=== PATIENT | male | born 1990 | race African-American/Black ===

== ENCOUNTER 2019-10-27 21:31 | Emergency (ER) | payer OTHER ==
[2019-10-27] MEDS ORDERED: Sodium Chloride 0.9% 1,000 ML IV ONE (21:40)
[2019-10-27] MEDS ORDERED: Sodium Chloride 0.9% 10 ML Syringe FLUSH PRN (21:40)
[2019-10-27] MEDS ORDERED: Ondansetron 4 MG/2 ML SDV IVPUSH ONE (21:40)
--- NOTE | 2019-10-27 21:46 | EDM.PDOC ---
ED HPI GENERAL MEDICAL PROBLEM - General Chief Complaint: General Stated Complaint: VOMITING AND CHEST PAIN Time Seen by Provider: 10/27/19 21:31 Source of Information: Reports: Patient History Limitations: Reports: No Limitations - History of Present Illness INITIAL COMMENTS - FREE TEXT/NARRATIVE: Patient comes into the emergency department with nausea, vomiting, weakness and right-sided chest discomfort. Patient states the right-sided chest discomfort approximately 2 weeks ago and has been consistent has not changed since it first began. Patient states the pain on the right side of the chest is reproducible with palpation and arm movement. Patient endorses recently moving large amount of furniture and states the discomfort started around that time. Patient states that the nausea, vomiting, weakness started this evening after he arrived at work. He states there was a sudden onset of feeling fatigued and he began to vomit. He states he vomited about 3 or 4 times. She states since then he has not been feeling very well and is diaphoretic. He feels nauseated currently. Patient denies any recent COVID-19 (SOB, headache, sore throat, runny nose, loss of taste) symptoms or recent exposure. Dates he is been relatively healthy otherwise. He denies any active chest pain, shortness of breath, dizziness, lightheadedness, peripheral edema, or genitourinary concerns. Denies any interventions that make the symptoms more intense or lessen. Patient also denies taking any medications or [id number] remedies prior to arrival to the emergency department. Onset: Sudden Location: Reports: Generalized Quality: Reports: Ache Severity: Mild Improves with: Reports: None Worsens with: Reports: None Context: Reports: Activity Associated Symptoms: Reports: Fever/Chills, Loss of Appetite, Malaise, Nausea/Vomiting - Related Data Allergies Allergy/AdvReac Type Severity Reaction Status Date / Time No Known Allergies Allergy Verified 10/27/19 23:07 Home Meds: Home Meds . [No Known Home Meds] 10/27/19 [History] ED ROS GENERAL - Review of Systems Review Of Systems: Comprehensive ROS is negative, except as noted in HPI. Constitutional: Reports: Chills, Malaise, Weakness, Fatigue HEENT: Reports: No Symptoms Respiratory: Reports: Pleuritic Chest Pain Cardiovascular: Reports: No Symptoms Endocrine: Reports: No Symptoms GI/Abdominal: Reports: Nausea, Vomiting : Reports: No Symptoms Musculoskeletal: Reports: No Symptoms Skin: Reports: No Symptoms Neurological: Reports: No Symptoms Psychiatric: Reports: No Symptoms Hematologic/Lymphatic: Reports: No Symptoms Immunologic: Reports: No Symptoms ED EXAM, GENERAL - Physical Exam Exam: See Below Exam Limited By: No Limitations General Appearance: Alert, WD/WN, No Apparent Distress Eye Exam: Bilateral Eye: EOMI, PERRL Head: Atraumatic, Normocephalic Neck: Normal Inspection, Supple, Non-Tender, Full Range of Motion Respiratory/Chest: No Respiratory Distress, Lungs Clear, Normal Breath Sounds, No Accessory Muscle Use, Chest Non-Tender Cardiovascular: Normal Peripheral Pulses, No Edema, No Gallop, Tachycardia Peripheral Pulses: 4+: Radial (L), Radial (R) Extremities: Normal Inspection, Normal Range of Motion, Non-Tender, No Pedal Edema, Normal Capillary Refill Neurological: Alert, Oriented, CN II-XII Intact, Normal Gait Psychiatric: Normal Affect, Normal Mood Skin Exam: Warm, Dry, Intact, Normal Color Course - Orders/Labs/Meds Orders: Active Orders 24 hr Category Date Time Status EKG Documentation Completion [RC] STAT Care 10/27/19 21:40 Ordered Chest 1V Frontal [CR] Stat Exams 10/27/19 21:40 Ordered Sodium Chloride 0.9% [Saline Flush] Med 10/27/19 21:40 Ordered 10 ml FLUSH ASDIRECTED PRN Peripheral IV Insertion Adult [OM.PC] Stat Oth 10/27/19 21:39 Ordered Medication Orders Sodium Chloride (Saline Flush) 10 ml FLUSH ASDIRECTED PRN PRN Reason: Keep Vein Open Labs: Laboratory Tests 10/27/19 10/27/19 Range/Units 22:19 22:19 WBC 5.5 (4.0-10.0) x10^3/uL RBC 5.57 (4.5-6.0) x10^6/uL Hgb 12.8 L (14.0-18.0) g/dL Hct 38.6 L (40.0-52.0) % MCV 69.3 L (78.0-93.0) fL MCH 23.0 L (26.0-32.0) pg MCHC 33.2 (32.0-36.0) g/dL RDW Coeff of Joaquin 15.7 H (10.0-15.0) % Plt Count 201 (130-400) x10^3/uL Neut % (Auto) 51.4 (50.0-80.0) % Lymph % (Auto) 37.6 (25.0-50.0) % Cherry % (Auto) 8.4 (2.0-11.0) % Eos % (Auto) 2.4 (0.0-4.0) % Baso % (Auto) 0.2 (0.2-1.2) % Sodium 138 (136-145) mmol/L Potassium 4.3 (3.5-5.1) mmol/L Chloride 103 (98-107) mmol/L Carbon Dioxide 26 (21-32) mmol/L Anion Gap 13.3 (10-20) mmol/L BUN 11 (7-18) mg/dL Creatinine 1.4 H (0.70-1.30) mg/dL Est Cr Clr Drug Dosing TNP Estimated GFR (MDRD) > 60 Glucose 117 H (74-106) mg/dL Calcium 9.1 (8.5-10.1) mg/dL Corrected Calcium 9.18 (8.5-10.1) mg/dL Total Bilirubin 0.4 (0.2-1.0) mg/dL AST 36 (15-37) U/L ALT 36 (16-63) U/L Alkaline Phosphatase 78 (46-116) U/L Troponin I < 0.017 (<=0.056) ng/mL Total Protein 8.2 (6.4-8.2) g/dL Albumin 3.9 (3.4-5.0) g/dL Globulin 4.3 Albumin/Globulin Ratio 0.91 Meds: Medications Generic Name Dose Route Start Last Admin Trade Name Freq PRN Reason Stop Dose Admin Sodium Chloride 10 ml 10/27/19 21:40 Saline Flush FLUSH ASDIRECTED PRN Keep Vein Open Discontinued Medications Generic Name Dose Route Start Last Admin Trade Name Freq PRN Reason Stop Dose Admin Sodium Chloride 1,000 mls @ 1,000 mls/hr 10/27/19 21:40 10/27/19 22:25 Normal Saline IV 10/27/19 22:39 1,000 mls/hr ONETIME ONE Administration Ondansetron HCl 4 mg 10/27/19 21:40 10/27/19 22:25 Zofran IVPUSH 10/27/19 21:41 4 mg ONETIME ONE Administration - Re-Assessments/Exams Free Text/Narrative Re-Assessment/Exam: 10/27/19 23:16 pt states he is feeling better but is still tired and run down feeling. He is alert, oriented, nausea gone, and resting without any pain or discomfort. Still has palpable discomfort on the right upper/lateral chest only with palpation. Departure - Departure Time of Disposition: 23:20 Disposition: Home, Self-Care 01 Condition: Good Clinical Impression: Viral gastritis - Discharge Information *PRESCRIPTION DRUG MONITORING PROGRAM REVIEWED*: Not Applicable *COPY OF PRESCRIPTION DRUG MONITORING REPORT IN PATIENT MELISSA: Not Applicable Instructions: Viral Gastroenteritis, Adult, [id number] Forms: ED Department Discharge, ED Return to Work/School Form Additional Instructions: 1. rest 2. increase your water intake 3. Continue all at home medications 4. Activity and diet as tolerated 5. Can take over the counter Tylenol for any pain or discomfort 6. Follow up with PCP if symptoms continue, return, or progress 7. Call with any questions or concerns - My Orders Last 24 Hours: My Active Orders 10/27/19 21:39 Peripheral IV Insertion Adult [OM.PC] Stat 10/27/19 21:40 EKG Documentation Completion [RC] STAT Chest 1V Frontal [CR] Stat Sodium Chloride 0.9% [Saline Flush] 10 ml FLUSH ASDIRECTED PRN - Assessment/Plan Last 24 Hours: My Active Orders 10/27/19 21:39 Peripheral IV Insertion Adult [OM.PC] Stat 10/27/19 21:40 EKG Documentation Completion [RC] STAT Chest 1V Frontal [CR] Stat Sodium Chloride 0.9% [Saline Flush] 10 ml FLUSH ASDIRECTED PRN Assessment:: 1. Nausea/vomiting 2. fatigue 3 Viral Gastritis Plan: 1. Labs completed in the ER. Results reviewed with the patient 2. chest xray scan completed in the ER. Results reviewed with the patient 3. IV initiated in the emergency department 4. IV fluids provided 5. EKG completed in ER. 6. Zofran given in the ER to help with nausea 7. Patient and nursing staff was updated regarding the plan of care 8. Patient and family are agreeable to the above plan of care 9. All questions and concerns were addressed with the patient and family prior to discharge
[2019-10-27 22:46] LABS: CHLORIDE,CL 103 mmol/L (98-107); SODIUM,NA 138 mmol/L (136-145)
[2019-10-27 22:47] LABS: ANION GAP 13.3 mmol/L (10-20)
--- NOTE | 2019-10-28 09:26 | CR ---
[id number] RAD/RAD Chest PA or AP 1V EXAM: SINGLE VIEW CHEST. INDICATION: CHEST PAIN COMPARISON: NO PREVIOUS SIMILAR EXAM IS AVAILABLE FINDINGS: The lungs are clear There is no pneumothorax The cardiac silhouette is slightly prominent IMPRESSION: NO ACUTE PROCESS Robert Gomez MD 10/28/19 [id number] Thank you for allowing us to participate in the care of your patient.
== END 2019-10-27 23:29 | disposition home or self-care (01) ==
LOC: SUPCPDRO 21:31 → VM.ED 21:31
DX: A08.4 Viral intestinal infection, unspecified (principal)
CPT/HCPCS: 71045; 80053; 84484; 85025; 93005; 96361; 96374; 99283; 99284; J2405; J7030